=== PATIENT | female | born 1970 | race Caucasian/White ===

== ENCOUNTER 2019-07-08 00:48 | Emergency (ER) | payer MEDICAID ==
[~2019-07-08] VITALS: Ht 162.6 cm; Wt 72.2 kg
[2019-07-08 00:52] VITALS: BP 138/68
[2019-07-08] MEDS ORDERED: CLIN150C8 PO (01:12)
[2019-07-08] MEDS ORDERED: clindamycin 150mg capsule PO ONE (01:15)
== END 2019-07-08 01:33 | disposition home or self-care (01) ==
LOC: ER 00:49
DX: L02.412 Cutaneous abscess of left axilla (principal); L03.112 Cellulitis of left axilla; J45.909 Unspecified asthma, uncomplicated; F17.200 Nicotine dependence, unspecified, uncomplicated; Z98.890 Other specified postprocedural states; Z79.899 Other long term (current) drug therapy
CPT/HCPCS: 10060; 99283

== ENCOUNTER 2019-07-10 12:01 | Emergency (ER) | payer MEDICAID ==
[~2019-07-10] VITALS: Ht 165.1 cm; Wt 80.0 kg
[~2019-07-10 12:01] MED LIST: CLIN150C8 PO
[2019-07-10 12:15] VITALS: BP 134/85
[2019-07-10] MEDS ORDERED: ketorolac trometh inj. 60 MG/2 ML VIAL IM ONE (13:20)
[2019-07-10] MEDS ORDERED: acetaminophen 325mg tablet PO ONE (13:20)
[2019-07-10] MEDS ORDERED: ACET-812 PO (13:23)
[2019-07-10] MEDS ORDERED: IBUP-1985 PO (13:23)
[2019-07-10] MEDS ORDERED: HYDR-3965 PO (13:23)
== END 2019-07-10 13:48 | disposition home or self-care (01) ==
LOC: ER 12:02
DX: L02.412 Cutaneous abscess of left axilla (principal); M25.511 Pain in right shoulder; J45.909 Unspecified asthma, uncomplicated; Z98.890 Other specified postprocedural states; Z79.899 Other long term (current) drug therapy
CPT/HCPCS: 96372; 99283; J1885